=== PATIENT | male | born 1990 | race Caucasian/White ===

== ENCOUNTER 2022-06-18 19:20 | Emergency (ER) | payer MEDICAID ==
[~2022-06-18] VITALS: Ht 177.8 cm; Wt 132.0 kg
[2022-06-18 19:39] VITALS: BP 143/90
[2022-06-18] MEDS ORDERED: KETOROLAC 60MG/2ML VIAL IM ONE (21:30)
[2022-06-18] MEDS ORDERED: HYDR-4001 MT (22:44)
[2022-06-18] MEDS ORDERED: IBUP-2029 MT (22:44)
== END 2022-06-18 23:45 | disposition home or self-care (01) ==
LOC: ER 19:20
DX: M25.562 Pain in left knee (principal); G89.11 Acute pain due to trauma
CPT/HCPCS: 73560; 96372; 99283; J1885